=== PATIENT | male | born 1965 | race Caucasian/White ===

== ENCOUNTER 2020-02-16 08:25 | Day surgery (SDC) | payer BC ==
[~2020-02-16 08:25] MED LIST: Lactated Ringers 1,000 ML IV SCH; Lidocaine 1%/Sod Bicarbonate in NS 8.4% 1 ML Syringe IDERM PRN; Sodium Chloride 0.9% 10 ML Syringe FLUSH PRN
[2020-02-16] MEDS ORDERED: Propofol 200 MG/20 ML SDV ONE ×2 (10:33→12:47)
[2020-02-16] MEDS ORDERED: Lidocaine 1% 4 ML ONE ×2 (10:34→12:56)
--- NOTE | 2020-02-16 10:49 | PCM.PREANE ---
Preanesthetic Assessment - Procedure Proposed Procedure: Screening Colonoscopy - Anesthesia/Transfusion/Family Hx Anesthesia History: Prior Anesthesia Without Reaction Family History of Anesthesia Reaction: No - Review of Systems General: No Symptoms Pulmonary: No Symptoms Cardiovascular: No Symptoms Gastrointestinal: No Symptoms Neurological: No Symptoms Other: Reports: None - Physical Assessment NPO Status Date: 02/16/20 NPO Status Time: 04:00 Vital Signs: Last Vital Signs Temp 36.5 C 02/16/20 08:25 Pulse 70 02/16/20 08:25 Resp 16 02/16/20 08:25 BP 122/70 02/16/20 08:25 Pulse Ox 95 02/16/20 08:25 Height: 1.75 m Weight: 72.5 kg ASA Class: 2 Mental Status: Alert & Oriented x3 Airway Class: Mallampati = 1 Dentition: Reports: Normal Dentition Thyro-Mental Finger Breadths: 3 Mouth Opening Finger Breadths: 3 ROM/Head Extension: Full Lungs: Clear to Auscultation, Normal Respiratory Effort Cardiovascular: Regular Rate, Regular Rhythm - Allergies Allergies/Adverse Reactions: Allergies Allergy/AdvReac Type Severity Reaction Status Date / Time No Known Allergies Allergy Verified 02/16/20 10:13 - Acknowledgements Anesthesia Type Planned: MAC Pt an Appropriate Candidate for the Planned Anesthesia: Yes Alternatives and Risks of Anesthesia Discussed w Pt/Guardian: Yes Pt/Guardian Understands and Agrees with Anesthesia Plan: Yes PreAnesthesia Questionnaire HEENT History: Reports: Impaired Vision, Other (See Below) Other HEENT History: wears glasses Cardiovascular History: Reports: None Respiratory History: Reports: None Gastrointestinal History: Reports: None Genitourinary History: Reports: None COMPUTER SYSTEMS ADMINISTRATOR History: Reports: None Musculoskeletal History: Reports: None Neurological History: Reports: None Psychiatric History: Reports: None Endocrine/Metabolic History: Reports: None Hematologic History: Reports: None Immunologic History: Reports: None Oncologic (Cancer) History: Reports: None Dermatologic History: Reports: None Other Dermatologic History: atypical pigmented skin lesion - Infectious Disease History Infectious Disease History: Reports: None - Past Surgical History Head Surgeries/Procedures: Reports: None Cardiovascular Surgical History: Reports: None Respiratory Surgical History: Reports: None GI Surgical History: Reports: Hernia, Inguinal Female Surgical History: Reports: None Male Surgical History: Reports: None Endocrine Surgical History: Reports: None Neurological Surgical History: Reports: None Musculoskeletal Surgical History: Reports: Other (See Below) Other Musculoskeletal Surgeries/Procedures:: bilateral hip replacements Oncologic Surgical History: Reports: None Dermatological Surgical History: Reports: None - SUBSTANCE USE Tobacco Use Status *Q: Never Tobacco User Recreational Drug Use History: No - HOME MEDS Home Medications: Home Meds Acetaminophen [Tylenol] 650 mg PO Q4H PRN 02/15/20 [History] - CURRENT (IN HOUSE) MEDS Current Meds: Current Medications Lactated Ringer's (Ringers, Lactated) 1,000 mls @ 125 mls/hr IV ASDIRECTED NELIDA Stop: 02/16/20 23:00 Last Admin: 02/16/20 08:25 Dose: 125 mls/hr Documented by: Lidocaine/Sodium Bicarbonate (Buffered Lidocaine 1% In Ns 8.4%) 0.25 ml IDERM ONETIME PRN PRN Reason: Prior to IV Start Stop: 02/16/20 18:00 Sodium Chloride (Saline Flush) 10 ml FLUSH ASDIRECTED PRN PRN Reason: Keep Vein Open Stop: 02/16/20 18:00 Discontinued Medications Lidocaine HCl (Xylocaine-Mpf 1%) Confirm Administered Dose 4 mls @ as directed .ROUTE .STK-MED ONE Stop: 02/16/20 10:35 Propofol (Diprivan 20 Ml) Confirm Administered Dose 400 mg .ROUTE .STK-MED ONE Stop: 02/16/20 10:34
[2020-02-16] MEDS ORDERED: Midazolam 1 MG/ML 2 ML SDV ONE (10:51)
--- NOTE | 2020-02-16 11:23 | PCM.PRNOTE ---
- Free Text/Narrative Note: Date: 02/16/2020 Procedure: initial screening colonoscopy Endoscopist: Esteban Pineda MD Findings: good prep. No polyps identified. Detailed Report: Patient was taken to the endoscopy suite and placed in left lateral decubitus position. Timeout was performed, and monitored anesthesia care initiated. Visual inspection of the anus and digital rectal exam unremarkable. The prostate felt normal. The colonoscope was inserted and advanced all the way to the cecum. The appendiceal orifice and ileocecal valve were visualized. Prep was very good. The scope was slowly withdrawn and mucosal surfaces carefully inspected. No polyps were identified. There was no diverticular disease or hemorrhoidal disease appreciated. No pathology appreciated on retroflexion of the scope within the rectum. Air was suctioned from the colon prior to withdrawal of the scope. The patient tolerated the procedure well.
--- NOTE | 2020-02-16 11:28 | PCM.POSTAN ---
POST ANESTHESIA ASSESSMENT - MENTAL STATUS Mental Status: Alert - VITAL SIGNS Vital Signs: 1122 102/71 96 70 14 97.3 Last Vital Signs Temp 36.5 C 02/16/20 08:25 Pulse 70 02/16/20 08:25 Resp 16 02/16/20 08:25 BP 122/70 02/16/20 08:25 Pulse Ox 95 02/16/20 08:25 - RESPIRATORY Respiratory Status: Respiratory Rate WNL, Airway Patent, O2 Saturation Stable, Supplemental Oxygen - CARDIOVASCULAR CV Status: Pulse Rate WNL, Blood Pressure Stable - GASTROINTESTINAL GI Status: No Symptoms - PAIN Pain Score: 0 - POST OP HYDRATION Hydration Status: Adequate & Stable
--- NOTE | 2020-02-16 11:28 | PCM48HPAN ---
Post Anesthesia Note - EVALUATION WITHIN 48HRS OF ANESTHETIC Vital Signs in Normal Range: Yes Patient Participated in Evaluation: Yes Respiratory Function Stable: Yes Airway Patent: Yes Cardiovascular Function Stable: Yes Hydration Status Stable: Yes Pain Control Satisfactory: Yes Nausea and Vomiting Control Satisfactory: Yes Mental Status Recovered: Yes Vital Signs: Last Vital Signs Temp 36.5 C 02/16/20 08:25 Pulse 70 02/16/20 08:25 Resp 16 02/16/20 08:25 BP 122/70 02/16/20 08:25 Pulse Ox 95 02/16/20 08:25
[2020-02-16] MEDS ORDERED: Ketamine 500 mg/10 ML MDV ONE (12:28)
[2020-02-16] MEDS ORDERED: ePHEDrine 50 MG/ML SDV ONE (12:39)
[2020-02-16] MEDS ORDERED: Rocuronium 50 MG/5 ML Vial ONE ×2 (12:50→14:14)
[2020-02-16] MEDS ORDERED: Lactated Ringers 1,000 ML ONE ×2 (12:51→12:53)
[2020-02-16] MEDS ORDERED: Dexamethasone 4 MG/ML 5 ML MDV ONE (12:55)
== END 2020-02-16 12:20 | disposition home or self-care (01) ==
LOC: JD.SDS 08:25
PROVIDERS: ATTEND Surgery
DX: Z12.11 Encounter for screening for malignant neoplasm of colon (principal); Z79.82 Long term (current) use of aspirin; Z98.890 Other specified postprocedural states
CPT/HCPCS: 45378; J0694; J1100; J2001; J2250; J2704; J2710; J7120